=== PATIENT | male | born 1980 | race Caucasian/White ===

== ENCOUNTER → 2023-06-23 | Outpatient (CLI) | payer OTHER ==
[2023-06-23 12:15] LABS: FREE T4 (FREE THYROXINE) 1.07 ng/dL (0.76-1.46); THYROID STIMULATING HORMONE 0.97 uIU/mL (0.36-3.74)
== END | disposition home or self-care (01) ==
LOC: RADMN 09:31
PROVIDERS: ATTEND Chiropractor
DX: M19.071 Primary osteoarthritis, right ankle and foot (principal); K59.00 Constipation, unspecified; R07.9 Chest pain, unspecified; E07.9 Disorder of thyroid, unspecified; M06.9 Rheumatoid arthritis, unspecified; R05.9 Cough, unspecified
CPT/HCPCS: 71046; 72070; 72100; 84439; 84443; 84481; 86431; 36415-L1; 36415-TC